=== PATIENT | male | born 1995 | race Caucasian/White ===

== ENCOUNTER 2017-03-14 22:49 | Emergency (ER) | payer OTHER ==
--- NOTE | 2017-03-14 22:59 | EDPHY ---
H & P Stated Complaint: DIFFICULTY SWALLOWING FOOD Time Seen by Provider: 03/14/17 22:59 HPI/ROS: HPI: This is a 21-year-old male who presents with Chief Complaint: Difficulty swallowing Location: Throat Quality: Difficulty swelling Duration: 4 days Signs and Symptoms: No drooling, + indigestion, + pain throat with swallowing, + difficulty swallowing food, + able to swallow liquids, no fever, no sore throat, no neck stiffness, no difficulty speaking, no coughing Timing: Sudden Severity: Moderate Context: Patient complains of sore throat on Saturday and then resultant difficulty swallowing solids since. He reports that it feels like it stays in the midportion of his esophagus and take several hours to pass through. He has no difficulty swallowing saliva or speaking. He does not remember getting any food stuck in his throat. He was seen by [facility] Saturday and given a PPI and Maalox with mild relief. Modifying Factors: Comment: ROS: see HPI Constitutional: No fever, no chills, no weight loss Eyes: No blurred vision Respiratory: No shortness of breath, no cough Cardiovascular: No chest pain Gastrointestinal: No nausea, no vomiting, no diarrhea Genitourinary: No dysuria Extremities: No myalgias Neurologic: No weakness, no numbness Skin: No rashes Hematologic: No bruising, no bleeding MEDICAL/SURGICAL/SOCIAL HISTORY: Medical history: Surgical history: Denies Social history: College chin at [employer] CONSTITUTIONAL: Well-appearing, tidy young adult male, awake and alert, no obvious distress HEENT: Atraumatic and normocephalic, PERRL, EOMI. Tympanic membranes clear. Oropharynx clear, tonsils 1+ no erythema, uvula midline, no postpharyngeal edema ; no exudate and moist pink mucosa. Airway patent. No lymphadenopathy. No meningismus. Cardiovascular: Normal S1/S2, regular rate, regular rhythm, without murmur rub or gallop. PULMONARY/CHEST: Symmetrical and nontender. Clear to auscultation bilaterally. Good air movement. No accessory muscle usage. ABDOMEN: Soft, nondistended, nontender, no rebound, no guarding, no peritoneal signs, no masses or organomegaly. No CVAT. EXTREMITIES: 2/2 pulses, no deformities, no clubbing, no cyanosis or edema. NEUROLOGICAL: no focal neuro deficits. GCS 15. SKIN: Warm and dry, no erythema. no rash. Good capillary refill. Source: Patient - Personal History Current Tetanus Diphtheria and Acellular Pertussis (TDAP): No - Medical/Surgical History Hx Asthma: No Hx Chronic Respiratory Disease: No Hx Diabetes: No Hx Cardiac Disease: No Hx Renal Disease: No Hx Cirrhosis: No Hx Alcoholism: No Hx HIV/AIDS: No Hx Splenectomy or Spleen Trauma: No Other PMH: NONE - Social History Smoking Status: Current every day smoker Constitutional: Initial Vital Signs Temperature (C) 37.3 C 03/14/17 22:54 Heart Rate 88 03/14/17 22:54 Respiratory Rate 18 03/14/17 22:54 Blood Pressure 140/80 H 03/14/17 22:54 O2 Sat (%) 96 03/14/17 22:54 O2 Delivery Mode Room Air Allergies/Adverse Reactions: amoxicillin Allergy (Verified 03/14/17 22:54) Home Medications: Medication Instructions Recorded Pantoprazole Sodium [Protonix 40mg 40 mg PO BID #14 tab 03/14/17 (*)] Sucralfate [Carafate 1gm/10ml Oral 1 gm PO QID 7 Days ml 03/14/17 Liquid (*)] Medical Decision Making - Diagnostics Imaging Results: Imaging Impressions Chest X-Ray 03/14/17 23:05 Impression: Normal chest. Soft Tissue Neck X-Ray 03/14/17 23:05 Impression: Cervical soft tissues negative for acute abnormality. ED Course/Re-evaluation: Neck and chest x-ray ordered, oral medications given Given GI cocktail, p.o. Ativan 1 mg, oral suspension Carafate with moderate relief Suspect esophageal irritation secondary to GERD No signs of respiratory distress/drooling/hypoxia/aphasia/tonsillar abscess/ airway compromise CXR my read via PACS shows no FB, opacity, effusion, pneumothorax. Neck xray my read epiglottis normal in appearance, no foreign body. Passed p.o. trial prior to discharge without difficulty. Differential Diagnosis: Differential diagnosis includes but is not limited to neuromuscular disease, pharyngitis, aphthous ulcers, Zenker diverticulum, obstructive disease, achalasia, peristaltic dysfunction. - Data Points Medications Given: Discontinued Medications Al Hydroxide/Mg Hydroxide (Maalox Susp) 30 ml PO ONCE ONE Stop: 03/14/17 23:04 Last Admin: 03/14/17 23:08 Dose: 30 ml Hyoscyamine Sulfate (Levsin, Hyomax-Sl) 0.25 mg PO ONCE ONE Stop: 03/14/17 23:04 Last Admin: 03/14/17 23:08 Dose: 0.25 mg Lidocaine (Lidocaine 2% Viscous) 15 ml PO ONCE ONE Stop: 03/14/17 23:04 Last Admin: 03/14/17 23:08 Dose: 15 ml Lorazepam (Ativan) 1 mg PO EDNOW ONE Stop: 03/14/17 23:38 Last Admin: 03/14/17 23:45 Dose: 1 mg Departure - Departure Disposition: Home, Routine, Self-Care Clinical Impression: Dysphagia Qualifiers: Dysphagia type: esophageal phase Qualified Code(s): R13.10 - Dysphagia, unspecified Condition: Good Instructions: Barium Swallow (ED), Dysphagia (ED) Additional Instructions: Continue to take proton pump inhibitor. Take Carafate 3 times a day before eating and at bedtime. Eat a soft diet and drink plenty of fluids to prevent dehydration and malnutrition. Follow up with Gastroenterology for evaluation and likely more diagnostic imaging that may include barium swallow and/or EGD. Referrals: Mathew Scott MD [Medical Doctor] - As per Instructions Prescriptions: Pantoprazole Sodium [Protonix 40mg (*)] 40 mg PO BID #14 tab Sucralfate [Carafate 1gm/10ml Oral Liquid (*)] 1 gm PO QID 7 Days ml
[2017-03-14] MEDS ORDERED: HYOSCYAMINE SULFATE 0.125 MG TAB PO ONE (23:03)
[2017-03-14] MEDS ORDERED: LIDOCAINE 2% VISCOUS 15 ML UDCUP PO ONE (23:03)
[2017-03-14] MEDS ORDERED: MAG HYDROX/AL HYDROX/SIMETH 30 ML UDCUP PO ONE (23:03)
[2017-03-14] MEDS ORDERED: SUCRALFATE 1 GM/10 ML UDCUP PO ONE (23:36)
[2017-03-14] MEDS ORDERED: LORazepam 1 MG TAB PO ONE (23:37)
[2017-03-15 00:03] VITALS: BP 118/73; PULSE 67; RESP 16; TEMP 98.2; O2SAT 97
== END 2017-03-15 00:02 | disposition home or self-care (01) ==
DX: R13.10 Dysphagia, unspecified (principal); F17.200 Nicotine dependence, unspecified, uncomplicated